=== PATIENT | female | born 1995 ===

== ENCOUNTER 2018-09-23 15:21 | Inpatient (IN) | payer OTHER ==
[~2018-09-23] VITALS: Ht 154.9 cm; Wt 90.7 kg
[2018-09-23] MEDS ORDERED: PRENATABS RX T1 EACH PO (16:05)
== END 2018-09-26 11:33 | disposition home or self-care (01) | DRG 798 ==
LOC: LDR 15:21 → OB/GYN 15:21
PROVIDERS: ADMIT Obstetrics & Gynecology
PROC: 10E0XZZ Delivery of Products of Conception, External Approach (ICD-10-PCS; principal; 2018-09-23)
PROC: 0HQ9XZZ Repair Perineum Skin, External Approach (ICD-10-PCS; 2018-09-23)
PROC: 4A1HXCZ Monitoring of Products of Conception, Cardiac Rate, External Approach (ICD-10-PCS; 2018-09-23)
PROC: 0UL70ZZ Occlusion of Bilateral Fallopian Tubes, Open Approach (ICD-10-PCS; 2018-09-25)
DX: O70.0 First degree perineal laceration during delivery (principal); Z37.0 Single live birth; Z3A.39 39 weeks gestation of pregnancy; Z30.2 Encounter for sterilization

== ENCOUNTER → 2024-06-26 | Emergency (ER) | payer OTHER ==
[~2024-06-26] MED LIST: PRENATABS RX T1 EACH PO
== END | disposition left against medical advice (07) ==
LOC: ER 13:07
DX: Z53.21 Procedure and treatment not carried out due to patient leaving prior to being seen by health care provider (principal)